=== PATIENT | female | born 1930 | race Caucasian/White ===

== ENCOUNTER 2020-09-01 14:48 | Inpatient (IN) | payer MEDICARE ==
--- NOTE | 2020-09-01 15:26 | XR ---
EXAMINATION TYPE: XR chest 2V DATE OF EXAM: 09/01/2020 COMPARISON: NONE HISTORY: Chest pain TECHNIQUE: Frontal and lateral views of the chest are obtained. FINDINGS: There is no focal air space opacity, pleural effusion, or pneumothorax seen. The cardiac silhouette size is at the upper limits of normal for size, heart size may be accentuated due to pectu s deformity. There are overlying leads. The osseous structures are intact, there is multilevel spond ylosis. IMPRESSION: No acute cardiopulmonary process.
[2020-09-01 15:27] LABS: Basophils % (A) 0 %; Eosinophils # (A) 0.1 k/uL (0-0.7); Eosinophils % (A) 2 %; HCT 37.6 % (34.0-46.0); HGB 12.6 gm/dL (11.4-16.0); Lymphocytes # (A) 1.2 k/uL (1.0-4.8); Lymphocytes % (A) 22 %; MCH 31.2 pg (25.0-35.0); MCHC 33.5 g/dL (31.0-37.0); MCV 93.3 fL (80.0-100.0); Mean Platelet Volume 8.2; Monocytes # (A) 0.4 k/uL (0-1.0); Monocytes % (A) 8 %; Neutrophils # (A) 3.5 k/uL (1.3-7.7); Neutrophils % (A) 65 %; Platelet Count 171 k/uL (150-450); RBC 4.03 m/uL (3.80-5.40); RDW 12.1 % (11.5-15.5); WBC 5.4 k/uL (3.8-10.6)
[2020-09-01 15:35] LABS: ALT 10 U/L (4-34); AST 26 U/L (14-36); African American GFR (CKD) >90 (>60 ml/min/1.73 sqM); Albumin 3.8 g/dL (3.5-5.0); Alkaline Phosphatase 86 U/L (38-126); Anion Gap 7 mmol/L; Blood Urea Nitrogen 17 mg/dL (7-17); Calcium 9.2 mg/dL (8.4-10.2); Carbon Dioxide 26 mmol/L (22-30); Chloride 105 mmol/L (98-107); Creatine Kinase 96 U/L (30-135); Glucose 89 mg/dL (74-99); Lipase 109 U/L (23-300); Magnesium 2.1 mg/dL (1.6-2.3); Non-African American GFR(CKD) 79 (>60 ml/min/1.73 sqM); Sodium 138 mmol/L (137-145); Total Bilirubin 0.3 mg/dL (0.2-1.3); Total Protein 6.3 g/dL (6.3-8.2)
[2020-09-01 15:37] LABS: Partial Thromboplastin Time 23.4 sec (22.0-30.0); Prothrombin Time 10.5 sec (9.0-12.0)
[2020-09-01 15:39] LABS: D-Dimer 0.73 mg/L FEU (<0.60)
--- NOTE | 2020-09-01 16:52 | ED ---
Chest Pain HPI - General Chief Complaint: Chest Pain Stated Complaint: Chest pain Time Seen by Provider: 09/01/20 14:48 Source: patient, EMS, RN notes reviewed Mode of arrival: EMS Limitations: no limitations - History of Present Illness Initial Comments: This is a 89-year-old female was brought in by EMS today because of retrosternal chest pain. He states was very severe. She was given aspirin one nitroglycerin the pain resolved. She is brought in by EMS EKG showed no acute changes initially. She states she's been having problems for the past week with intermittent episodes of retrosternal chest discomfort that. She states that this pain occurred about 45 minutes prior to arrival today. No cough phlegm production fevers chills nausea vomiting sweats this time. MD Complaint: chest pain - Related Data Allergies Allergy/AdvReac Type Severity Reaction Status Date / Time Sulfa (Sulfonamide Allergy Abdominal Verified 09/01/20 14:51 Antibiotics) Pain Review of Systems ROS Statement: Those systems with pertinent positive or pertinent negative responses have been documented in the HPI. ROS Other: All systems not noted in ROS Statement are negative. EKG Findings - EKG Results: EKG: interpreted by RAMIN, sinus rhythm (Sinus rhythm a 68. We'll 182 QRS duration 84 QT since QTC 434/461 minutes. Eckerman RVH evidence of old inferior changes) Past Medical History Additional Past Medical History / Comment(s): Colon CA History of Any Multi-Drug Resistant Organisms: None Reported Past Surgical History: No Surgical Hx Reported Smoking Status: Never smoker Past Alcohol Use History: None Reported Past Drug Use History: None Reported General Exam - General Exam Comments Initial Comments: This is a well-developed asthenic appearing female who is awake alert oriented 3 Limitations: no limitations Course Vital Signs 09/01/20 09/01/20 14:51 16:25 Temperature 98.2 F Pulse Rate 71 Respiratory 16 Rate Blood Pressure 124/76 107/68 O2 Sat by Pulse 100 Oximetry - Reevaluation(s) Reevaluation #1: 09/01/20 17:06 Reevaluation patient reveals no further chest pain. Chest Pain MDM - MDM Imaging reviewed no acute findings I did discuss findings with patient family regarding findings patient will be admitted with cardiology consultation did discuss case Dr. Bernard Critical Care Time Critical Care Time: Yes Total Critical Care Time: 31 Critical Care Time: Critical care time includes initial presentation with history physical labs x- rays reevaluation patient responsive therapy discuss with the patient family regarding findings discussed with the admitting physician admission orders and documentation the above Disposition Clinical Impression: Chest pain, Unstable angina pectoris Disposition: ADMITTED IP TO THIS [facility] Condition: Fair Referrals: Andrez Gibbons MD [Primary Care Provider] - 1-2 days
[2020-09-01] MEDS ORDERED: NITROGLYCERIN SL TABS 0.4 MG TAB SUBLINGUAL PRN (17:07)
[2020-09-01] MEDS ORDERED: HEPARIN SODIUM 1,000 UN/ML (10ML VL) IV ONE (17:07)
[2020-09-01] MEDS ORDERED: HEPARIN SOD,PORK IN 0.45% NACL 25,000 UNIT in 0.45% NACL 1 250ML.BAG IV SCH (17:15)
[2020-09-01] MEDS: SODIUM CHLORIDE 0.9% 1,000 ML IV SCH (17:39)
[2020-09-01] MEDS ORDERED: NALOXONE 0.4 MG/ML 1 ML VIAL IV PRN (18:01)
[2020-09-01] MEDS ORDERED: bisacodyL 5 MG TABLET.DR PO PRN (18:01)
[2020-09-01] MEDS ORDERED: PANTOPRAZOLE 40 MG/10 ML VIAL IVP STA (18:02)
--- NOTE | 2020-09-01 18:07 | P.HPIM ---
History of Present Illness H&P Date: 09/01/20 Chief Complaint: chest pain Patient is a 89-year-old female with a history of prior colon cancer who presented to the ER with complaint of chest pain. She received aspirin and nitro prior to arrival in the ED with adequate pain relief. Inital EKG demonstarted NSR with PAC, SUper axis deviation, and no st-t wave changes. CXR showed no acute process. Initial troponin was negative. D_dimer when adjusted for age was normal. Patient seen and examined at bedside. She reports that last week she has been having some pretty significant heartburn, nausea, and constipation for the last 3 days after taking Pepto-Bismol. Today [place] she started experiencing retrosternal chest pain without radiation that was severe in nature. It was associated with difficulty in breathing, feeling just off and nauseated. No unusual numbness or tingling down into her arms or up into her jaw. No presyncope. She has not been sick or ill otherwise recently. She denies any changes in medications. She states she recently had an EKG done at Dr. Gibbons's office which was normal. She has no history of heart disease. No recent changes in medication. Has been taking peptobismol for he last week fro heart burn. Pertinent positives and negatives as discussed in HPI, a complete review of systems was performed and all other systems are negative. General: non toxic, no distress, appears at stated age Derm: warm, dry Head: atraumatic, normocephalic, symmetric Eyes: EOMI, no lid lag, anicteric sclera, pupils equal round reactive to light ENT: Nose and ears atraumatic, no thrush, + pharyngeal erythema, no thrush Neck: No thyromegaly, no cervical lymphadenopathy, trachea midline, supple Mouth: no lip lesion, mucus membranes moist Cardiovascular: S1S2 reg, no murmur, positive posterior tibial pulse bilateral, no edema, capillary refill less than 2 seconds Lungs: clear to ascultation bilateral, no ronchi, no rales, no wheeze, no accessory muscle use Abdominal: soft, nontender to palpation, no guarding, no appreciable organomegaly, normal bowel sounds Ext: no gross muscle atrophy, muscle strength muscle strength 5 out of 5 in all 4 extremities, no contractures Neuro: CN II-XI grossly intact, light touch intact all 4 extremities, finger to nose within normal limits, Psych: Alert, oriented, appropriate affect Chest pain, relieved by nitroglycerin -Concerns for cardiac versus esophageal etiology. -Follow troponins -Aspirin -Statin -Placed on heparin drip -Cardiology consultation -Telemetry -D-dimer is normal for age as she could have peptic 0.9 and it would be considered normal Bradycardia with PAC noted on monitor -Continue with telemetry -We will need walk test for: Atrophic competency prior to discharge GERD with known hiatal hernia -Start PPI Glaucoma -Resume eyedrops went home The patient is placed in observation with an anticipated less than 2 midnight stay for evaluation of chest pain. Surrogate decision-maker: son CODE STATUS:full, no prolonged mechanical ventilation DVT prophylaxis: SCDs Discussed with: patient, son, nursing, ed physician Anticipated discharge date: in AM Anticipated discharge place[facility] A total of 65 minutes was spent on the care of this complex patient more than 50% of the time was spent in counseling and care coordination. Past Medical History Additional Past Medical History / Comment(s): Colon CA, hiatal hernia, glaucoma History of Any Multi-Drug Resistant Organisms: None Reported Past Surgical History: Hysterectomy Additional Past Surgical History / Comment(s): partial coloctomy due to colon ca, parathyroidectomy Smoking Status: Never smoker Past Alcohol Use History: None Reported Past Drug Use History: None Reported Additional History: no assistive devices - Past Family History Mother Additional Family Medical History / Comment(s): heart disease, [place] at age 75 Medications and Allergies Allergies Allergy/AdvReac Type Severity Reaction Status Date / Time Sulfa (Sulfonamide Allergy Abdominal Verified 09/01/20 14:51 Antibiotics) Pain Physical Exam Osteopathic Statement: *. No significant issues noted on an osteopathic structural exam other than those noted in the History and Physical/Consult. Vitals: Vital Signs Temp Pulse Resp BP Pulse Ox 09/01/20 16:25 71 16 107/68 100 09/01/20 14:51 98.2 F 124/76 Intake and Output 09/01/20 09/01/20 09/01/20 06:59 14:59 22:59 Other: Weight 49.895 kg Results CBC & Chem 7: 09/01/20 14:58 09/01/20 14:58 Labs: Abnormal Lab Results - Last 24 Hours (Table) 09/01/20 Range/Units 14:58 D-Dimer 0.73 H (<0.60) mg/L FEU
[2020-09-01] MEDS: ATORVASTATIN 80 MG TAB PO SCH (23:05)
[2020-09-01] MEDS: ONDANSETRON 4 MG/2 ML VIAL IVP PRN (23:06)
[2020-09-02] MEDS: PANTOPRAZOLE 40 MG TABLET PO SCH ×2 (07:49→17:57)
[2020-09-02] MEDS: ONDANSETRON 4 MG/2 ML VIAL IVP PRN (07:49)
[2020-09-02] MEDS ORDERED: ASPIRIN 325 MG TAB PO SCH (09:00)
[2020-09-02 09:31] LABS: Chol/HDL Ratio 3.06; Cholesterol 193 mg/dL (0-200); Triglycerides <50.0 mg/dL (0.0-149.0)
--- NOTE | 2020-09-02 10:07 | P.CRDCN ---
History of Present Illness History of present illness: HISTORY OF PRESENTING ILLNESS This is a pleasant 89-year-old female past medical history significant for GERD and known hiatal hernia. 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 We venus peres been asked to see in consultation for chest pain and elevated troponin. Patient states that yesterday, she was walking into her house, she checked the mail. Started having midsternal chest pain. It increased with activity. Describes it as 8/10, aching and tight. She states this was different then the burning acid refluex chest pain she usually has. Her chest pain did not subside. Pain is non-radiating. She states she went inside, her daugther called EMS. Patient received aspirin and nitro in the ambulance and her chest pain was relieved. She did have associated nausea, mild diaphoresis and dyspnea. She denies palpitations. She is a non-smoker, never smoked. Non-diabetic. Denies history of coronary artery disease, [place], stroke, HTN, HLD. She does not take any medications. Patient is seen and examined and examined at bedside, no acute distress, chest pain has resolved. She does endorse conspitation, not having a bowel movement for 3 days. She does live alone, able to care for herself and do ADLs with no assistance. EKG revealed sinus rhythm, heart rate 60, right axis deviation, right bundle branch block, slow R wave progression. No prior EKG. Repeat EKG this morning reveals sinus bradycardia, heart rate 52, right axis deviation, right bundle branch block, slow R wave progression. Laboratory reviewed, CBC unremarkable, d-dimer 0.73, troponin trend 0.012-->0.24-->.059. Sodium 138, potassium 4.0, serum creatinine 0.65, magnesium 2.1, proBNP 372, COVID-19 negative. Telemetry reviewed patient in sinus bradycardia HR 40s. REVIEW OF SYSTEMS At the time of my exam: CONSTITUTIONAL: Denies fever or chills. CARDIOVASCULAR: +Chest pain +shortness of breath. Denies orthopnea, PND or palpitations. RESPIRATORY: Denies cough. GASTROINTESTINAL: +nausea, +constipation. Denies abdominal pain, diarrhea, vomiting. MUSCULOSKELETAL: Denies myalgias. NEUROLOGIC: Denies numbness, tingling, headacbe or weakness. ENDOCRINE: Denies fatigue, weight change, polydipsia or polyurina. GENITOURINARY: Denies burning, hematuria or urgency with micturation. HEMATOLOGIC: Denies history of anemia or bleeding. PHYSICAL EXAMINATION Blood pressure 138/65 heart rate 4050s afebrile and maintaining oxygen saturation 96% on room air CONSTITUTIONAL: No apparent distress. HEENT: Head is normocephalic. Pupils are equal, round. Sclerae anicteric. Mucous membranes of the mouth are moist. No JVD. No carotid bruit. CHEST EXAMINATION: Lungs are clear to auscultation. No chest wall tenderness is noted on palpation or with deep breathing. HEART EXAMINATION: Slow regular rate and rhythm. S1, S2 heard. Systolic ejection murmur heard. No gallops or rub. ABDOMEN: Soft, nontender. Positive bowel sounds. EXTREMITIES: 2+ peripheral pulses, no lower extremity edema and no calf tenderness. SKIN: intact NEUROLOGIC EXAMINATION: Patient is awake, alert and oriented x3. ASSESSMENT NSTEMI GERD Known Hiatal hernia PLAN Risks, Benefits of cardiac catheterization and alternative therapies were disc ussed with the patient. Patient has indicated understanding and would like to continue with medical management at this time. Obtain 2D echocardiogram and doppler study to assess cardiac structure and function. Continue Heparin drip for 24 hours Aspirin, Plavix, statin, Imdur started Cardiac telemetry Patient has been bradycardic, no beta juan alberto started. Further recommendations based on clinical course. Thank you kindly for this consultation. Nurse Practitioner note has been reviewed, I agree with a documented findings and plan of care. Patient was seen and examined. Past Medical History Additional Past Medical History / Comment(s): Colon CA, hiatal hernia, glaucoma History of Any Multi-Drug Resistant Organisms: None Reported Past Surgical History: Hysterectomy Additional Past Surgical History / Comment(s): partial coloctomy due to colon ca, parathyroidectomy Smoking Status: Never smoker Past Alcohol Use History: None Reported Past Drug Use History: None Reported - Past Family History Mother Additional Family Medical History / Comment(s): heart disease, [place] at age 75 Medications and Allergies Home Medications Medication Instructions Recorded Confirmed Type Cholecalciferol [Vitamin D3 (25 50 mcg PO DAILY 09/01/20 09/01/20 History Mcg = 1000 Iu)] Cranberry Fruit Extract [Cranberry] 500 mg PO DAILY 09/01/20 09/01/20 History Latanoprost/Pf [Latanoprost 0.005% 1 drop BOTH EYES HS 09/01/20 09/01/20 History Eye Drop] Vitamin E 400 unit PO DAILY 09/01/20 09/01/20 History Allergies Allergy/AdvReac Type Severity Reaction Status Date / Time Sulfa (Sulfonamide Allergy Abdominal Verified 09/01/20 18:17 Antibiotics) Pain Physical Exam Vitals: Vital Signs Temp Pulse Pulse Resp BP BP Pulse Ox 09/02/20 07:00 98.3 F 51 L 16 138/65 96 09/02/20 02:00 98.1 F 49 L 16 108/62 94 L 09/01/20 18:15 57 L 16 103/77 98 09/01/20 16:25 71 16 107/68 100 09/01/20 14:51 98.2 F 124/76 Intake and Output 09/01/20 09/02/20 09/02/20 22:59 06:59 14:59 Other: # Voids 1 1 Weight 49.895 kg Results 09/01/20 14:58 09/01/20 14:58 Cardiac Enzymes 09/01/20 09/01/20 09/01/20 Range/Units 14:58 14:58 19:35 AST 26 (14-36) U/L Troponin I 0.012 0.245 H* (0.000-0.034) ng/mL 09/01/20 Range/Units 22:11 AST (14-36) U/L Troponin I 0.591 H* (0.000-0.034) ng/mL Coagulation 09/01/20 Range/Units 14:58 PT 10.5 (9.0-12.0) sec APTT 23.4 (22.0-30.0) sec CBC 09/01/20 Range/Units 14:58 WBC 5.4 (3.8-10.6) k/uL RBC 4.03 (3.80-5.40) m/uL Hgb 12.6 (11.4-16.0) gm/dL Hct 37.6 (34.0-46.0) % Plt Count 171 (150-450) k/uL Comprehensive Metabolic Panel 09/01/20 Range/Units 14:58 Sodium 138 (137-145) mmol/L Potassium 4.0 (3.5-5.1) mmol/L Chloride 105 (98-107) mmol/L Carbon Dioxide 26 (22-30) mmol/L BUN 17 (7-17) mg/dL Creatinine 0.65 (0.52-1.04) mg/dL Glucose 89 (74-99) mg/dL Calcium 9.2 (8.4-10.2) mg/dL AST 26 (14-36) U/L ALT 10 (4-34) U/L Alkaline Phosphatase 86 (38-126) U/L Total Protein 6.3 (6.3-8.2) g/dL Albumin 3.8 (3.5-5.0) g/dL Current Medications Generic Name Dose Route Start Last Admin Trade Name Freq PRN Reason Stop Dose Admin Acetaminophen 650 mg 09/01/20 18:01 Acetaminophen Tab 325 Mg Tab PO Q6HR PRN Mild Pain or Fever > 100.5 Aspirin 325 mg 09/02/20 09:00 09/02/20 07:49 Aspirin 325 Mg Tab PO 325 mg DAILY RITCHIE Administration Atorvastatin Calcium 80 mg 09/01/20 21:00 09/01/20 23:05 Atorvastatin 80 Mg Tab PO 80 mg HS RITCHIE Administration Bisacodyl 5 mg 09/01/20 18:01 Bisacodyl 5 Mg Tablet.Dr PO DAILY PRN Constipation Sodium Chloride 1,000 mls @ 20 mls/hr 09/01/20 17:15 09/01/20 17:39 Saline 0.9% IV 20 mls/hr .Q24H RITCHIE Administration Heparin Sodium/Sodium Chloride 250 mls @ 5.987 mls/hr 09/01/20 17:15 09/01/20 17:36 25,000 unit/ Sodium Chloride IV 12 units/kg/hr .Q24H RITCHIE 5.987 mls/hr Administration Protocol 12 UNITS/KG/HR Naloxone HCl 0.2 mg 09/01/20 18:01 Naloxone 0.4 Mg/Ml 1 Ml Vial IV Q2M PRN Opioid Reversal Nitroglycerin 0.4 mg 09/01/20 17:07 Nitroglycerin Sl Tabs 0.4 Mg Tab SUBLINGUAL Q5M PRN Chest Pain Ondansetron HCl 4 mg 09/01/20 18:01 09/02/20 07:49 Ondansetron 4 Mg/2 Ml Vial IVP 4 mg Q8HR PRN Administration Nausea And Vomiting Pantoprazole Sodium 40 mg 09/02/20 07:30 09/02/20 07:49 Pantoprazole 40 Mg Tablet PO 40 mg AC-BID RITCHIE Administration Intake and Output 09/01/20 09/02/20 09/02/20 22:59 06:59 14:59 Other: # Voids 1 1 Weight 49.895 kg 09/01/20 14:58 09/01/20 14:58
[2020-09-02] MEDS: CLOPIDOGREL 75 MG TAB PO SCH (11:13)
[2020-09-02] MEDS: ISOSORBIDE MONONITRATE ER 30 MG TAB.ER.24H PO SCH (11:13)
--- NOTE | 2020-09-02 11:29 | P.PN ---
Subjective Progress Note Date: 09/02/20 Patient's chest pain has resolved. Troponins have been increasing. Patient has been borderline bradycardic. Objective - Vital Signs Vital signs: Vital Signs Temp 98.3 F 09/02/20 07:00 Pulse 51 L 09/02/20 07:00 Resp 16 09/02/20 07:00 BP 138/65 09/02/20 07:00 Pulse Ox 96 09/02/20 07:00 Intake & Output 09/01/20 09/02/20 09/02/20 18:59 06:59 18:59 Intake Total 118 Balance 118 Weight 49.895 kg 49.895 kg Intake: Oral 118 Other: # Voids 1 - Exam Gen: awake, alert HEENT: normocephalic, atraumatic, good hearing acuity, moist mucous membranes Resp: good air exchange, breathing comfortably with no accessory muscle use, clear to auscultation bilaterally without wheezes or crackles CVS: good distal perfusion x 4, bradycardic, regular rate, systolic ejection murmur GI: soft, NTTP, ND, appropriate bowel sounds : no SPT, no CVAT, mello catheter not present MSK: no pitting edema, no clubbing Neuro: non-focal, moving all extremities Psych: cooperative, euthymic mood - Labs CBC & Chem 7: 09/01/20 14:58 09/01/20 14:58 Labs: Abnormal Lab Results - Last 24 Hours (Table) 09/01/20 09/01/20 09/01/20 Range/Units 14:58 19:35 22:11 D-Dimer 0.73 H (<0.60) mg/L FEU Troponin I 0.245 H* 0.591 H* (0.000-0.034) ng/mL HDL Cholesterol (40.0-60.0) mg/dL 09/02/20 Range/Units 05:33 D-Dimer (<0.60) mg/L FEU Troponin I (0.000-0.034) ng/mL HDL Cholesterol 63.0 H (40.0-60.0) mg/dL Assessment and Plan Assessment: NSTEMI -Follow troponins to peak -Aspirin -Statin -Beta juan alberto not started due to bradycardia -Cardiology started Imdur -Placed on heparin drip -Cardiology consultation -Telemetry -D-dimer is normal for age as she could have peptic 0.9 and it would be considered normal Bradycardia with PAC noted on monitor -Continue with telemetry -We will need walk test for: Chronotropic competence prior to discharge GERD with known hiatal hernia -Start PPI Glaucoma -Resume eyedrops went home The patient may change to inpatient status today CODE STATUS:full, no prolonged mechanical ventilation DVT prophylaxis: SCDs Anticipated discharge date: Tomorrow a.m. Anticipated discharge place: [facility]
--- NOTE | 2020-09-02 11:31 | ECHOF ---
Referral Reason:elevated troponin, chest pain MEASUREMENTS -------- HEIGHT: 162.6 cm WEIGHT: 49.9 kg BP: 138/65 RVIDd: 2.3 cm (< 3.3) IVSd: 1.0 cm (0.6 - 1.1) LVIDd: 3.4 cm (3.9 - 5.3) LVPWd: 1.3 cm (0.6 - 1.1) IVSs: 1.4 cm LVIDs: 1.9 cm LVPWs: 1.4 cm LAESV Index (A-L): 44.16 ml/m Ao Diam: 2.4 cm (2.0 - 3.7) AV Cusp: 1.6 cm (1.5 - 2.6) MV EXCURSION: 15.351 mm (> 18.000) MV EF SLOPE: 52 mm/s (70 - 150) EPSS: 0.6 cm MV E Akin: 0.74 m/s MV DecT: 330 ms MV A Akin: 1.05 m/s MV E/A Ratio: 0.71 AR PHT: 371 ms RAP: 20.00 mmHg RVSP: 46.87 mmHg FINDINGS -------- Sinus rhythm. This was a technically adequate study. The left ventricular size is normal. There is mild concentric left ventricular hypertrophy. Overa ll left ventricular systolic function is normal with, an EF between 55 - 60 %. The diastolic fillin g pattern is normal for the age of the patient 12.73. The right ventricle is normal in size. LA is severely dilated >40 ml/m2 The right atrial size is normal. Interatrial and interventricular septum intact. The aortic valve is trileaflet and appears structurally normal. Trace amount of aortic regurgitatio n. There is no evidence of aortic stenosis. Mild mitral annular calcification present. Moderate mitral regurgitation is present. Ckfu-ua-pwcawbik tricuspid regurgitation present. There is mild to moderate pulmonary hypertension. The right ventricular systolic pressure, as measured by Doppler, is 46.87mmHg. Trace/mild (physiologic) pulmonic regurgitation. The aortic root size is normal. The inferior vena cava is dilated with poor inspiratory collapse which is consistent with estimated r ight atrial pressure of 20 mmHg. CONCLUSIONS -------- 1. The left ventricular size is normal. 2. There is mild concentric left ventricular hypertrophy. 3. Overall left ventricular systolic function is normal with, an EF between 55 - 60 %. 4. LA is severely dilated >40 ml/m2 5. Trace amount of aortic regurgitation. 6. Mild mitral annular calcification present. 7. Moderate mitral regurgitation is present. 8. Pcoj-th-hejlboeo tricuspid regurgitation present. 9. There is mild to moderate pulmonary hypertension. 10. The right ventricular systolic pressure, as measured by Doppler, is 46.87mmHg. 11. Trace/mild (physiologic) pulmonic regurgitation. 12. The inferior vena cava is dilated with poor inspiratory collapse which is consistent with estimat ed right atrial pressure of 20 mmHg. OIM ARCHITECT: Taylor Randall RDCS
[2020-09-02 12:59] VITALS: BMI 18.8
[2020-09-02] MEDS: HEPARIN SOD,PORK IN 0.45% NACL 25,000 UNIT in 0.45% NACL 1 250ML.BAG IV SCH (17:26)
[2020-09-02] MEDS: SODIUM CHLORIDE 0.9% 1,000 ML IV SCH (17:27)
[2020-09-02] MEDS: ATORVASTATIN 80 MG TAB PO SCH (21:32)
[2020-09-03] MEDS ORDERED: HEPARIN SODIUM 1,000 UN/ML (10ML VL) IV PRN (01:50)
[2020-09-03 07:06] LABS: African American GFR (CKD) 82 (>60 ml/min/1.73 sqM); Anion Gap 3 mmol/L; Blood Urea Nitrogen 17 mg/dL (7-17); Calcium 8.8 mg/dL (8.4-10.2); Carbon Dioxide 29 mmol/L (22-30); Chloride 107 mmol/L (98-107); Glucose 91 mg/dL (74-99); Non-African American GFR(CKD) 71 (>60 ml/min/1.73 sqM); Potassium 4.2 mmol/L (3.5-5.1); Sodium 139 mmol/L (137-145)
[2020-09-03] MEDS: HEPARIN SOD,PORK IN 0.45% NACL 25,000 UNIT in 0.45% NACL 1 250ML.BAG IV SCH (09:04)
[2020-09-03] MEDS: PANTOPRAZOLE 40 MG TABLET PO SCH ×2 (09:22→17:31)
[2020-09-03] MEDS: ISOSORBIDE MONONITRATE ER 30 MG TAB.ER.24H PO SCH (09:22)
[2020-09-03] MEDS: ASPIRIN 81 MG PO SCH (09:22)
[2020-09-03] MEDS: CLOPIDOGREL 75 MG TAB PO SCH (09:22)
--- NOTE | 2020-09-03 10:59 | P.PN ---
Subjective Progress Note Date: 09/03/20 After speaking with the patient and the daughter today, patient is amenable to having a left heart cath done and if needed an intervention with the PCI. Patient no longer complaining of chest pain. Troponins were increasing as of this morning. Patient continues underwent a platelet therapy as well as heparin drip and statin therapy. Objective - Vital Signs Vital signs: Vital Signs Temp 98.2 F 09/03/20 07:00 Pulse 75 09/03/20 09:13 Resp 16 09/03/20 07:00 BP 102/43 09/03/20 09:13 Pulse Ox 98 09/03/20 07:00 Intake & Output 09/02/20 09/03/20 09/03/20 18:59 06:59 18:59 Intake Total 118 195.076 150 Output Total 3 Balance 115 195.076 150 Weight 49.895 kg Intake: Intake, IV Titration 195.076 Amount Heparin Sod,Pork in 0.45% 195.076 NaCl 25,000 unit In 0.45 % NaCl 1 250ml.bag @ 12 UNITS/KG/HR 5.987 mls/hr IV .Q24H [facility] Rx#: [id number] Oral 118 150 Output: Stool 3 Other: Voiding Method Toilet # Voids 2 - Exam Gen: awake, alert HEENT: normocephalic, atraumatic, good hearing acuity, moist mucous membranes Resp: good air exchange, breathing comfortably with no accessory muscle use, clear to auscultation bilaterally without wheezes or crackles CVS: good distal perfusion x 4, bradycardic, regular rate, systolic ejection murmur GI: soft, NTTP, ND, appropriate bowel sounds : no SPT, no CVAT, mello catheter not present MSK: no pitting edema, no clubbing Neuro: non-focal, moving all extremities Psych: cooperative, euthymic mood - Labs CBC & Chem 7: 09/01/20 14:58 09/03/20 06:00 Labs: Abnormal Lab Results - Last 24 Hours (Table) 09/02/20 09/03/20 09/03/20 Range/Units 21:53 06:00 07:53 APTT 39.7 H 70.2 H (22.0-30.0) sec Troponin I 0.841 H* (0.000-0.034) ng/mL Assessment and Plan Assessment: NSTEMI -Follow troponins to peak -Aspirin -Statin -Beta juan alberto not started due to bradycardia -Cardiology started Imdur -Placed on heparin drip -Cardiology consultation -Telemetry -D-dimer is normal for age as she could have peptic 0.9 and it would be considered normal Bradycardia with PAC noted on monitor -Continue with telemetry -We will need walk test for: Chronotropic competence prior to discharge GERD with known hiatal hernia -Start PPI Glaucoma -Resume eyedrops went home The patient may change to inpatient status today CODE STATUS:full, no prolonged mechanical ventilation DVT prophylaxis: SCDs Anticipated discharge date: Tomorrow a.m. Anticipated discharge place: [facility]
--- NOTE | 2020-09-03 13:59 | P.PN ---
Subjective Progress Note Date: 09/03/20 This is a pleasant 89-year-old female patient with a past medical history of GERD and hiatal hernia. She presented with complaints of chest discomfort. EKG on admission showed sinus mechanism with nonspecific ST-T wave abnormalities and evidence of prior inferior infarct. Troponins came back to be elevated at 0.012, 0.245, 0.591 and 0.841. Initially following discussion with the patient it was decided on medical management. She's been initiated on aspirin 81 mg daily, atorvastatin 80 mg by mouth daily at bedtime, Plavix 75 mg by mouth daily, isosorbide 30 mg daily and heparin drip. Upon examination this morning family is at bedside. And after further discussion with the family the patient would like to pursue cardiac catheterization. She has been chest pain free. Objective - Vital Signs Vital signs: Vital Signs Temp 98.2 F 09/03/20 07:00 Pulse 75 09/03/20 09:13 Resp 16 09/03/20 08:00 BP 102/43 09/03/20 09:13 Pulse Ox 98 09/03/20 07:00 Intake & Output 09/02/20 09/03/20 09/03/20 18:59 06:59 18:59 Intake Total 118 195.076 150 Output Total 3 Balance 115 195.076 150 Weight 49.895 kg Intake: Intake, IV Titration 195.076 Amount Heparin Sod,Pork in 0.45% 195.076 NaCl 25,000 unit In 0.45 % NaCl 1 250ml.bag @ 12 UNITS/KG/HR 5.987 mls/hr IV .Q24H [facility] Rx#: [id number] Oral 118 150 Output: Stool 3 Other: Voiding Method Toilet Toilet # Voids 2 - Exam PHYSICAL EXAMINATION: HEENT: Head is atraumatic, normocephalic. Pupils equal, round. Neck is supple. There is no elevated jugular venous pressure. HEART EXAMINATION: Heart sounds regular, S1 and S2 normal with a soft systolic murmur. CHEST EXAMINATION: Lungs are clear to auscultation. No chest wall tenderness is noted on palpation or with deep breathing. ABDOMEN: Soft, nontender. Bowel sounds are heard. No organomegaly noted. EXTREMITIES: 2+ peripheral pulses with no evidence of peripheral edema and no calf tenderness noted. NEUROLOGIC patient is awake, alert and oriented x3. . - Labs CBC & Chem 7: 09/01/20 14:58 09/03/20 06:00 Labs: Abnormal Lab Results - Last 24 Hours (Table) 09/02/20 09/03/20 09/03/20 Range/Units 21:53 06:00 07:53 APTT 39.7 H 70.2 H (22.0-30.0) sec Troponin I 0.841 H* (0.000-0.034) ng/mL 09/03/20 Range/Units 11:03 APTT (22.0-30.0) sec Troponin I 0.666 H* (0.000-0.034) ng/mL Assessment and Plan Assessment: #1 non-ST elevation WA #2 GERD #3 hiatal hernia Plan: From cardiology's perspective, again risk and benefits of cardiac catheterization and alternative therapies were discussed with the patient and the family. Both the patient and family aren't completely understanding and would like to proceed with cardiac catheterization at some point. Patient did eat breakfast this morning and is chest pain-free. She is currently on appropriate medical therapy. We will continue to monitor the patient and provide further recommendations accordingly. The above dictated assessment and findings were discussed with signing physician. The impression and plan of care have been directed as dictated. Kimberly Solano, Nurse Practitioner, acting as scribe for signing physician.
[2020-09-03] MEDS: SODIUM CHLORIDE 0.9% 1,000 ML IV SCH (14:25)
[2020-09-03] MEDS: ACETAMINOPHEN TAB 325 MG TAB PO PRN (20:47)
[2020-09-03] MEDS: ATORVASTATIN 80 MG TAB PO SCH (20:49)
[2020-09-04] MEDS ORDERED: NITROGLYCERIN SL TABS 0.4 MG TAB SUBLINGUAL PRN (07:53)
[2020-09-04] MEDS ORDERED: ALPRAZolam 0.25 MG TAB PO PRN (07:53)
[2020-09-04] MEDS ORDERED: ALPRAZolam 0.5 MG TAB PO PRN (07:53)
[2020-09-04] MEDS ORDERED: SODIUM CHLORIDE 0.9% 1,000 ML in EMPTY BAG 1 BAG IV ONE (07:53)
[2020-09-04 08:54] LABS: Basophils % (A) 1 %; Eosinophils # (A) 0.1 k/uL (0-0.7); Eosinophils % (A) 3 %; HCT 40.1 % (34.0-46.0); HGB 13.3 gm/dL (11.4-16.0); Lymphocytes % (A) 21 %; MCH 31.4 pg (25.0-35.0); MCHC 33.2 g/dL (31.0-37.0); MCV 94.5 fL (80.0-100.0); Mean Platelet Volume 8.5; Monocytes # (A) 0.3 k/uL (0-1.0); Monocytes % (A) 7 %; Neutrophils # (A) 3.2 k/uL (1.3-7.7); Neutrophils % (A) 67 %; Platelet Count 171 k/uL (150-450); RBC 4.25 m/uL (3.80-5.40); RDW 12.3 % (11.5-15.5); WBC 4.8 k/uL (3.8-10.6)
[2020-09-04] MEDS: ASPIRIN 81 MG PO SCH (09:03)
[2020-09-04] MEDS: CLOPIDOGREL 75 MG TAB PO SCH (09:03)
[2020-09-04] MEDS: PANTOPRAZOLE 40 MG TABLET PO SCH ×2 (09:03→17:27)
[2020-09-04] MEDS: ISOSORBIDE MONONITRATE ER 30 MG TAB.ER.24H PO SCH (09:03)
[2020-09-04 09:15] LABS: African American GFR (CKD) 89 (>60 ml/min/1.73 sqM); Anion Gap 4 mmol/L; Blood Urea Nitrogen 14 mg/dL (7-17); Calcium 8.9 mg/dL (8.4-10.2); Carbon Dioxide 30 mmol/L (22-30); Chloride 107 mmol/L (98-107); Glucose 89 mg/dL (74-99); Non-African American GFR(CKD) 78 (>60 ml/min/1.73 sqM); Sodium 141 mmol/L (137-145)
--- NOTE | 2020-09-04 09:26 | P.PN ---
Subjective Progress Note Date: 09/04/20 Noted complex at this time. No further chest pain. Plan for left heart cath tomorrow. Troponins have peaked at 0.86. Objective - Vital Signs Vital signs: Vital Signs Temp 97.6 F 09/04/20 07:00 Pulse 69 09/04/20 07:00 Resp 18 09/04/20 07:00 BP 132/64 09/04/20 07:00 Pulse Ox 96 09/04/20 07:00 Intake & Output 09/03/20 09/04/20 09/04/20 18:59 06:59 18:59 Intake Total 466 150 Output Total 2 Balance 466 -2 150 Intake: IV 216 Heparin Sod,Pork in 0.45% 56 NaCl 25,000 unit In 0.45 % NaCl 1 250ml.bag @ 12 UNITS/KG/HR 5.987 mls/hr IV .Q24H [facility] Rx#: [id number] Sodium Chloride 0.9% 1, 160 000 ml @ 20 mls/hr IV . Q24H [facility] Rx#:[id number] Oral 250 150 Output: Stool 2 Other: Voiding Method Toilet Toilet # Voids 2 1 - Exam Gen: awake, alert HEENT: normocephalic, atraumatic, good hearing acuity, moist mucous membranes Resp: good air exchange, breathing comfortably with no accessory muscle use, clear to auscultation bilaterally without wheezes or crackles CVS: good distal perfusion x 4, bradycardic, regular rate, systolic ejection murmur GI: soft, NTTP, ND, appropriate bowel sounds : no SPT, no CVAT, mello catheter not present MSK: no pitting edema, no clubbing Neuro: non-focal, moving all extremities Psych: cooperative, euthymic mood - Labs CBC & Chem 7: 09/04/20 08:20 09/04/20 08:20 Labs: Abnormal Lab Results - Last 24 Hours (Table) 09/03/20 09/03/20 Range/Units 11:03 14:49 APTT 54.3 H (22.0-30.0) sec Troponin I 0.666 H* (0.000-0.034) ng/mL Assessment and Plan Assessment: NSTEMI -Follow troponins to peak -Aspirin -Statin -Beta juan alberto not started due to bradycardia -Cardiology started Imdur -Placed on heparin drip -Cardiology consultation -Telemetry -D-dimer is normal for age as she could have peptic 0.9 and it would be considered normal -Left heart cath 09/04, pending Bradycardia with PAC noted on monitor -Continue with telemetry -We will need walk test for: Chronotropic competence prior to discharge GERD with known hiatal hernia -Start PPI Glaucoma -Resume eyedrops went home The patient may change to inpatient status today CODE STATUS:full, no prolonged mechanical ventilation DVT prophylaxis: SCDs Anticipated discharge date: Tomorrow a.m. Anticipated discharge place: [facility]
--- NOTE | 2020-09-04 12:35 | PN ---
PROGRESS NOTE Radha is an 89-year-old lady who was admitted to hospital with acute non ST-segment elevation myocardial infarction and was advised to undergo cardiac catheterization. This morning she is doing well and is free of symptoms. On exam, comfortable at rest. Vital signs are stable. Chest exam reveals good air entry bilaterally. Heart exam reveals first and second heart sounds. No gallop. Examination of extremities did not reveal any edema. Peripheral pulses are felt. ASSESSMENT: Acute non ST-segment elevation myocardial infarction. PLAN: Patient will undergo cardiac catheterization by Dr. Morales tomorrow. MMODL / IJN: [id number] /
[2020-09-04] MEDS: SODIUM CHLORIDE 0.9% 1,000 ML IV SCH (13:26)
[2020-09-04] MEDS: HEPARIN SOD,PORK IN 0.45% NACL 25,000 UNIT in 0.45% NACL 1 250ML.BAG IV SCH (13:27)
[2020-09-04] MEDS: ATORVASTATIN 80 MG TAB PO SCH (21:07)
[2020-09-05] MEDS ORDERED: ATORVASTATIN 80 MG TAB PO ONE (06:00)
[2020-09-05] MEDS ORDERED: ASPIRIN 325 MG TAB PO ONE (06:00)
[2020-09-05 06:59] LABS: Basophils % (A) 0 %; Eosinophils # (A) 0.1 k/uL (0-0.7); Eosinophils % (A) 2 %; HCT 42.7 % (34.0-46.0); HGB 13.6 gm/dL (11.4-16.0); Lymphocytes # (A) 0.9 k/uL (1.0-4.8); Lymphocytes % (A) 20 %; MCH 30.2 pg (25.0-35.0); MCHC 31.8 g/dL (31.0-37.0); MCV 94.9 fL (80.0-100.0); Mean Platelet Volume 8.5; Monocytes # (A) 0.3 k/uL (0-1.0); Monocytes % (A) 7 %; Neutrophils # (A) 3.3 k/uL (1.3-7.7); Neutrophils % (A) 67 %; Platelet Count 155 k/uL (150-450); RDW 12.8 % (11.5-15.5); WBC 4.8 k/uL (3.8-10.6)
[2020-09-05] MEDS ORDERED: HEPARIN SODIUM,PORCINE 2,500 UNIT in SODIUM CHLORIDE 0.9% 250 ML IRRIGATION PRN (07:00)
[2020-09-05] MEDS ORDERED: HEPARIN SODIUM,PORCINE 10,000 UNIT in SODIUM CHLORIDE 0.9% 1,000 ML IRRIGATION PRN (07:00)
[2020-09-05 07:16] VITALS: RESP 16
[2020-09-05 07:48] LABS: African American GFR (CKD) 88 (>60 ml/min/1.73 sqM); Anion Gap 7 mmol/L; Blood Urea Nitrogen 11 mg/dL (7-17); Calcium 9.2 mg/dL (8.4-10.2); Carbon Dioxide 30 mmol/L (22-30); Chloride 105 mmol/L (98-107); Glucose 92 mg/dL (74-99); Non-African American GFR(CKD) 76 (>60 ml/min/1.73 sqM); Potassium 4.1 mmol/L (3.5-5.1); Sodium 142 mmol/L (137-145)
[2020-09-05] MEDS ORDERED: VERAPAMIL 2.5 MG/ML 2 ML AMP ONE ×2 (08:02→10:53)
[2020-09-05] MEDS ORDERED: LIDOCAINE 1% INJ 10MG/ML (20 ML MDV) ONE (08:02)
[2020-09-05] MEDS ORDERED: HEPARIN SODIUM 1,000 UN/ML (10ML VL) ONE (08:06)
[2020-09-05] MEDS ORDERED: fentaNYL (PF) 50 MCG/ML 2 ML AMP ONE (08:07)
[2020-09-05] MEDS ORDERED: IV FLUID CONTINUATION 1,000 ML IV ONE (08:21)
[2020-09-05] MEDS ORDERED: MIDAZOLAM 2 MG/2 ML VIAL IVP ONE (08:24)
[2020-09-05] MEDS ORDERED: fentaNYL (PF) 50 MCG/ML 2 ML AMP IVP ONE ×2 (08:24)
[2020-09-05] MEDS ORDERED: LIDOCAINE 1% INJ 10MG/ML (20 ML MDV) SQ ONE (08:24)
[2020-09-05] MEDS ORDERED: VERAPAMIL SYRINGE (5 MG/10 ML) INTRAARTER ONE ×2 (08:28→10:55)
[2020-09-05] MEDS ORDERED: HEPARIN SODIUM 1,000 UN/ML (10ML VL) IV ONE (08:32)
[2020-09-05] MEDS ORDERED: IOPAMIDOL-370 125ML BTL INJ ONE ×2 (08:54→11:28)
[2020-09-05] MEDS ORDERED: RX INFO: IV CONTRAST WAS GIVEN 1 EACH MISC MISCELLANE PRN ×2 (09:01→11:46)
--- NOTE | 2020-09-05 09:07 | P.CARDCATH ---
Date of Procedure: 09/05/20 Preoperative Diagnosis: Non-STEMI Postoperative Diagnosis: Multivessel disease with critical lesion involving the intermediate branch and moderate the severe disease involving the proximal to mid RCA Description of Procedure: HISTORY: This is a 89-year-old female with no significan past medical history was admitted to the hospital with symptoms and cardiac enzymes size to of non- STEMI. Patient is advised to have a cardiac catheterization for definitive diagnosis. Patient family were explained the risks and benefits of the procedure CONSENT:I have discussed the risks, benefits and alternative therapies for the above-mentioned procedure and for both sedation/analgesia as well as necessary blood product administration, if indicated, as they pertain to this patient. The patient has indicated understanding and acceptance of the risks and procedu res discussed. PROCEDURE: Patient was brought to the lab in a fasting state. Patient was given some IV sedation. The right wrist is infiltrated with lidocaine and right radial artery was entered using Seldinger technique. A 6-Korean catheter was left in place and selective coronary arteriography and left ventriculography was performed. Patient tolerated the procedure well. Patient is found to have a critical lesion in the intermediate branch and moderate to severe disease in RCA. No immediate complications were noted and patient is waiting to have intervention by JOHNNY Price. The sheath is sutured to the floor and patient is sent to PACU in a stable condition Conscious Sedation: Versed 0.5mg Fentanyl 12.5 g Duration 23 minutes HEMODYNAMICS:. The aortic pressure is about 130/70. Left ankle end-diastolic pressure is about 9-12. There was no gradient across the aortic valve SELECTIVE CORONARY ARTERIOGRAPHY: LEFT MAIN: Normal length and free of occlusive disease THE LEFT ANTERIOR DESCENDING CORONARY ARTERY:. This is a good caliber vessel wrapping around Free of any significant occlusive THE LEFT CIRCUMFLEX AND IS CORONARY ARTERY: Set good caliber vessel giving rise to small first OM branch or intermediate branch which is subtotal occlusion in midportion THE RIGHT CORONARY ARTERY:. This is a good caliber vessel and codominant has diffuse plaque in the midportion an area of about 70% lesion. LEFT VENTRICULOGRAPHY: Performed FINAL IMPRESSION: 2 vessel disease with a subtotal occlusion of the OM branch/intermediate branch. Moderate to critical lesion involving the RCA PLAN: And placement of the OM branch and also possibly RCA. To be done by JOHNNY Price PROGNOSIS: Guarded
[2020-09-05] MEDS ORDERED: SODIUM CHLORIDE 0.9% 1,000 ML IV SCH ×2 (09:15→12:00)
[2020-09-05] MEDS ORDERED: IV FLUID CONTINUATION 100 ML IV ONE (10:15)
[2020-09-05] MEDS ORDERED: SODIUM CHLORIDE 0.9% 1,000 ML IV ONE (10:15)
[2020-09-05] MEDS: ASPIRIN 81 MG PO SCH (11:02)
[2020-09-05] MEDS ORDERED: BIVALIRUDIN BOLUS 250 MG/50 ML IV ONE (11:03)
[2020-09-05] MEDS ORDERED: BIVALIRUDIN 250 MG in SODIUM CHLORIDE 0.9% 50 ML IV ONE (11:04)
[2020-09-05] MEDS ORDERED: METOPROLOL TARTRATE 5 MG/5 ML VIAL IVP ONE ×2 (11:08→11:10)
[2020-09-05] MEDS ORDERED: NITROGLYCERIN 1000MCG/10ML SYRINGE INTRACORON ONE (11:29)
[2020-09-05] MEDS ORDERED: CLOPIDOGREL 75 MG TAB ONE ×2 (11:32→11:33)
[2020-09-05] MEDS ORDERED: IOPAMIDOL-370 50ML BTL INJ ONE (11:34)
[2020-09-05] MEDS ORDERED: CLOPIDOGREL 75 MG TAB PO ONE (11:34)
[2020-09-05] MEDS ORDERED: METOPROLOL TARTRATE 25 MG TAB PO SCH (11:45)
[2020-09-05] MEDS ORDERED: ATROPINE SULFATE 0.1 MG/ML 10ML SYRINGE IV PRN (11:46)
[2020-09-05] MEDS ORDERED: NITROGLYCERIN SL TABS 0.4 MG TAB SUBLINGUAL PRN (11:46)
[2020-09-05] MEDS ORDERED: MAG HYDROX/AL HYDROX/SIMETH 30 ML CUP PO PRN (11:46)
[2020-09-05] MEDS ORDERED: ZOLPIDEM 5 MG TAB PO PRN (11:46)
[2020-09-05] MEDS: CLOPIDOGREL 75 MG TAB PO SCH (12:04)
[2020-09-05] MEDS: PANTOPRAZOLE 40 MG TABLET PO SCH ×2 (12:07→17:05)
[2020-09-05] MEDS: ISOSORBIDE MONONITRATE ER 30 MG TAB.ER.24H PO SCH (12:07)
--- NOTE | 2020-09-05 14:23 | P.DS ---
Providers Date of admission: 09/02/20 11:20 Expected date of discharge: 09/05/20 Attending physician: Lizzie Donaldson DO Consults: 09/01/20 17:08 Consult Physician Urgent Consulting Provider: Jian Hubbard Consult Reason/Comments: Chest pain Do you want consulting provider notified?: Yes 09/05/20 11:48 Consult Physician Routine Consulting Provider: [facility] Consult Reason/Comments: Post Interventional patient Do you want consulting provider notified?: Already Contacted Primary care physician: Andrez Gibbons MD Hospital Course: HPI: Patient is a 89-year-old female with a history of prior colon cancer who presented to the ER with complaint of chest pain. She received aspirin and nitro prior to arrival in the ED with adequate pain relief. Inital EKG demonstarted NSR with PAC, SUper axis deviation, and no st-t wave changes. CXR showed no acute process. Initial troponin was negative. D_dimer when adjusted for age was normal. Patient seen and examined at bedside. She reports that last week she has been having some pretty significant heartburn, nausea, and constipation for the last 3 days after taking Pepto-Bismol. Today [place] she started experiencing retrosternal chest pain without radiation that was severe in nature. It was associated with difficulty in breathing, feeling just off and nauseated. No unusual numbness or tingling down into her arms or up into her jaw. No presyncope. She has not been sick or ill otherwise recently. She denies any changes in medications. She states she recently had an EKG done at Dr. Gibbons's office which was normal. She has no history of heart disease. No recent changes in medication. Has been taking peptobismol for he last week fro heart burn. Pertinent positives and negatives as discussed in HPI, a complete review of systems was performed and all other systems are negative. Hospital Course: NSTEMI Bradycardia with PACs Patient is admitted for chest pain rule out, and noted to have increasing troponins which peaked around 0.86. Initially, patient was recommended to have left heart cath, however, she wanted medical management. However, after further discussion with her family members and cardiology team, patient decided it was more appropriate to undergo left heart cath with possible intervention. She underwent left heart cath on 09/05 which demonstrated 2 significant lesions, one of which was stented (OM1). Cardiology team recommended staged procedure with next step on Saturday to open up the RCA. Patient did well following the procedure on 09/05, and was discharged home with instructions to follow-up on Saturday for second PCI. Patient was started on aspirin, statin, Imdur, Plavix. She was noted to have bradycardic episodes on telemetry while she was in-house, therefore she was not started on metoprolol. I spent 31 coordinating this discharge. Assessment: Gen: awake, alert HEENT: normocephalic, atraumatic, good hearing acuity, moist mucous membranes Resp: good air exchange, breathing comfortably with no accessory muscle use, clear to auscultation bilaterally without wheezes or crackles CVS: good distal perfusion x 4, bradycardic, regular rate, systolic ejection murmur GI: soft, NTTP, ND, appropriate bowel sounds : no SPT, no CVAT, mello catheter not present MSK: no pitting edema, no clubbing Neuro: non-focal, moving all extremities Psych: cooperative, euthymic mood Patient Condition at Discharge: Good Plan - Discharge Summary Discharge Rx Participant: No New Discharge Prescriptions: New Aspirin 81 mg PO DAILY chew Atorvastatin [Lipitor] 80 mg PO HS 30 Days #30 tab Clopidogrel [Plavix] 75 mg PO DAILY 30 Days #30 tab Nitroglycerin Sl Tabs [Nitrostat] 0.4 mg SUBLINGUAL Q5M PRN #30 tab PRN Reason: Chest Pain Metoprolol Tartrate [Lopressor] 25 mg PO BID 30 Days #30 tab Acetaminophen Tab [Tylenol] 650 mg PO Q6HR PRN tab PRN Reason: Mild Pain Or Fever > 100.5 Continue Cholecalciferol [Vitamin D3 (25 Mcg = 1000 Iu)] 50 mcg PO DAILY Latanoprost/Pf [Latanoprost 0.005% Eye Drop] 1 drop BOTH EYES HS Cranberry Fruit Extract [Cranberry] 500 mg PO DAILY Vitamin E 400 unit PO DAILY Discharge Medication List Cholecalciferol [Vitamin D3 (25 Mcg = 1000 Iu)] 50 mcg PO DAILY 09/01/20 [History] Cranberry Fruit Extract [Cranberry] 500 mg PO DAILY 09/01/20 [History] Latanoprost/Pf [Latanoprost 0.005% Eye Drop] 1 drop BOTH EYES HS 09/01/20 [History] Vitamin E 400 unit PO DAILY 09/01/20 [History] Acetaminophen Tab [Tylenol] 650 mg PO Q6HR PRN tab 09/05/20 [Rx] Aspirin 81 mg PO DAILY chew 09/05/20 [Rx] Atorvastatin [Lipitor] 80 mg PO HS 30 Days #30 tab 09/05/20 [Rx] Clopidogrel [Plavix] 75 mg PO DAILY 30 Days #30 tab 09/05/20 [Rx] Metoprolol Tartrate [Lopressor] 25 mg PO BID 30 Days #30 tab 09/05/20 [Rx] Nitroglycerin Sl Tabs [Nitrostat] 0.4 mg SUBLINGUAL Q5M PRN #30 tab 09/05/20 [Rx] Follow up Appointment(s)/Referral(s): Andrez Gibbons MD [Primary Care Provider] - 1-2 days Fide Morales MD [STAFF PHYSICIAN] - 09/15/20 4:15 pm Activity/Diet/Wound Care/Special Instructions: [facility] scheduling department will call you on with further instructions for your procedure. (Expected procedure time on Saturday is 0630am so you will have to use the ER entrance) Discharge Disposition: HOME SELF-CARE
[2020-09-05 14:31] VITALS: TEMP 98
[2020-09-05 16:09] VITALS: BP 101/57; PULSE 53
[2020-09-05] MEDS: ACETAMINOPHEN TAB 325 MG TAB PO PRN (17:05)
--- NOTE | 2020-09-05 21:57 | PTCA ---
PERCUTANEOUSTRANS CORORONARY ANGIOGRAPHY DATE OF SERVICE: 09/05/2020 PROCEDURE PERFORMED: Percutaneous transluminal coronary angioplasty and stenting of proximal circumflex marginal coronary artery with a drug-eluting stent. PERFORMED BY: Dr. Antonio Price. Moderate conscious sedation time was 42 minutes. The patient was administered Versed. Oxygen saturation, hemodynamics and EKG were monitored closely. CLINICAL INFORMATION: Mrs. Radha Thompson is a lady with a history of hypertension who came into the hospital with episode of chest pain, had a troponin elevation suggestive of [id number] SC. She was advised coronary angiography after evaluation by Dr. Morales. Cardiac catheterization performed by Dr. Morales revealed a 99% proximal circumflex marginal lesion, which I believe is the culprit lesion. There was also a dominant RCA with a long area of disease of nearly 75%. Patient received contrast already and had about 140 mL of available contrast before reaching the threshold, given her age and creatinine. I therefore explained to the patient that I would perform intervention of the circumflex marginal, which appears to be the culprit vessel, which had 99% stenosis, and then I would bring her back for a PCI of RCA in the next few days. She understood the details and wished to proceed. PROCEDURE NOTE: The existing 6-Togolese introducer in the right radial artery was used to perform the procedure. Using a Glidewire, I advanced a JL4 guide catheter of 6-Togolese caliber and cannulated the left coronary artery. A run-through wire with a curve was used to cross the subtotal occlusion of the first obtuse marginal branch. Wire was kept distally. Predilatation was performed with a 2.25 caliber 12 mm NC Trek balloon. Modest result was achieved. I had difficulty with the guide support. After some manipulation, I advanced a 2.0 caliber 12 mm NC Trek balloon, and with this I gave a longer inflation of 12 atmospheres. There was a modest improvement. I then deployed a 12 mm long 2.25 caliber Xience stent at about 11 atmospheres. Patient had mild chest discomfort, no significant EKG changes. Excellent angiographic result without complication was achieved. There was a substantial improvement in the angiographic appearance and the artery appeared to be larger in caliber and also had a fairly large distribution. The patient received Angiomax bolus and infusion as per protocol. She also received 450 mg of Plavix as a loading dose. She had already received 75 mg earlier. The sheath was then taken out and TR band applied as per protocol, with saturation of the fingers of the right hand of 94%. The details of the procedure were discussed with the patient's son and daughter. I explained to them that she can be discharged later on today if she remains stable, and I will bring her back on Saturday to do the staged intervention of RCA, which was a larger vessel. Patient and family understand the rationale, risks, benefits and options of the larger dominant RCA that will be performed this Saturday. Patient will be discharged later on today if she remains stable, and renal function will be checked prior to the PCI procedure. She was sent to the room in a stable condition. MMODL / IJN: [id number] /
== END 2020-09-05 18:25 | disposition home or self-care (01) | DRG 247 ==
LOC: EC 14:48 → 6NMEDSUR 17:08 → UNDOADMOB 17:08 → 6NMEDSUR 18:35 → OBSVTOIN 09-02 11:20 → INTOOBSV 09-02 11:20
PROVIDERS: ADMIT Internal Medicine; ATTEND Internal Medicine
PROC: B2151ZZ Fluoroscopy of Left Heart using Low Osmolar Contrast (ICD-10-PCS; 2020-09-05)
PROC: B2111ZZ Fluoroscopy of Multiple Coronary Arteries using Low Osmolar Contrast (ICD-10-PCS; 2020-09-05)
PROC: 4A023N7 Measurement of Cardiac Sampling and Pressure, Left Heart, Percutaneous Approach (ICD-10-PCS; 2020-09-05)
PROC: 027034Z Dilation of Coronary Artery, One Artery with Drug-eluting Intraluminal Device, Percutaneous Approach (ICD-10-PCS; principal; 2020-09-05 11:20)
DX: I21.4 Non-ST elevation (NSTEMI) myocardial infarction (principal); I45.10 Unspecified right bundle-branch block; K21.9 Gastro-esophageal reflux disease without esophagitis; K44.9 Diaphragmatic hernia without obstruction or gangrene; K59.00 Constipation, unspecified; Z20.822 Contact with and (suspected) exposure to COVID-19; H40.9 Unspecified glaucoma; I10 Essential (primary) hypertension; Z79.82 Long term (current) use of aspirin; Z79.899 Other long term (current) drug therapy; Z85.038 Personal history of other malignant neoplasm of large intestine; Z90.710 Acquired absence of both cervix and uterus; I49.1 Atrial premature depolarization; Z60.2 Problems related to living alone; Z90.49 Acquired absence of other specified parts of digestive tract; Z88.2 Allergy status to sulfonamides; E89.2 Postprocedural hypoparathyroidism
CPT/HCPCS: 36415; 71046; 80048; 80053; 80061; 82550; 83690; 83735; 83880; 84484; 85025; 85379; 85610; 85730; 87635; 93005; 93306; 93458; 99291

== ENCOUNTER 2020-09-09 06:16 | Day surgery (SDC) | payer MEDICARE ==
[2020-09-07 11:48] VITALS: BMI 18.8
[~2020-09-09 06:16] MED LIST: ALPRAZolam 0.25 MG TAB PO PRN; ALPRAZolam 0.5 MG TAB PO PRN; ASPIRIN 325 MG TAB PO STA; ATORVASTATIN 80 MG TAB PO STA; NITROGLYCERIN SL TABS 0.4 MG TAB SUBLINGUAL PRN; SODIUM CHLORIDE 0.9% 1,000 ML in EMPTY BAG 1 BAG IV ONE
[2020-09-09] MEDS ORDERED: SODIUM CHLORIDE 0.9% 1,000 ML IV ONE (06:48)
[2020-09-09 07:08] VITALS: RESP 16; TEMP 98
[2020-09-09] MEDS ORDERED: LIDOCAINE 1% INJ 10MG/ML (20 ML MDV) ONE (07:31)
[2020-09-09] MEDS ORDERED: MIDAZOLAM 2 MG/2 ML VIAL IV ONE (07:53)
[2020-09-09] MEDS ORDERED: LIDOCAINE 1% INJ 10MG/ML (20 ML MDV) SQ ONE (07:54)
[2020-09-09] MEDS ORDERED: HEPARIN SODIUM 1,000 UN/ML (10ML VL) ONE (07:54)
[2020-09-09] MEDS: HEPARIN SODIUM 1,000 UN/ML (10ML VL) IV ONE ×2 (07:57→08:10)
[2020-09-09] MEDS ORDERED: NITROGLYCERIN 1000MCG/10ML SYRINGE INTRACORON ONE (08:17)
[2020-09-09] MEDS ORDERED: CLOPIDOGREL 75 MG TAB ONE (08:30)
[2020-09-09] MEDS ORDERED: IOPAMIDOL-370 100ML BTL INJ ONE ×2 (08:31→08:35)
[2020-09-09] MEDS ORDERED: CLOPIDOGREL 75 MG TAB PO ONE (08:35)
[2020-09-09] MEDS ORDERED: SODIUM CHLORIDE 0.9% 1,000 ML IV SCH (08:47)
--- NOTE | 2020-09-09 10:31 | PTCA ---
PERCUTANEOUSTRANS CORORONARY ANGIOGRAPHY DATE OF SERVICE: 09/09/2020 PROCEDURE: PTCA and stenting of proximal and mid RCA with 2 drug-eluting stents. PERFORMED BY: Dr. Antonio Price. ANESTHESIA: Moderate conscious sedation time was 41 minute. Patient was administered Versed. Oxygenation, hemodynamics and EKG were monitored closely. CLINICAL INFORMATION: Mrs. Radha Thompson is an 89-year-old lady wh9 was seen and evaluated by Dr. Morales and underwent cardiac cath performed by him on the and I did a stenting of a high first obtuse marginal which was a 99% culprit lesion. She also had a long lesion in the mid LAD/proximal LAD of about 70-80% and this was quite a calcified vessel. She was advised intervention and brought in for the procedure today. Risks, benefits, options were explained. PROCEDURE NOTE: Under local anesthesia and strict aseptic precautions, a 6-Arabic introducer was placed in the right femoral artery. Previously cannulating the right coronary artery from the radial approach was quite difficult. Subselective injections were performed. I used initially a standard right Osmani and switched over to an ART 3.5 catheter. With this I had better guide support. A run-through wire was used to cross the lesion. Predilatation was performed with a 20 mm long 3.0 caliber NC Trek balloon. I then deployed a 23 mm long Xience stent of 3.5 caliber at 12 atmospheres. I noted that distal to the stent there was still area of narrowing and this was addressed with a 12 mm long 3.5 caliber stent that was telescoped distally. Excellent angiographic result was achieved without complication. Patient had chest pain and inferior ST elevations. The patient received intravenous heparin and ACT was about 281. She was already on aspirin and Plavix. She received additional 150 mg of Plavix. The sheath was taken out and Angio-Seal device used to secure hemostasis. She was sent to the room in a stable condition. Results were discussed with the patient's son and daughter. I expect she will be discharged later today and will see Dr. Morales in one week. Excellent angiographic result was achieved. Medications, activity, diet were reviewed. Patient will be discharged today. MMODL / IJN: [id number] /
[2020-09-09 17:35] VITALS: BP 126/56; PULSE 59
== END 2020-09-09 17:32 | disposition home or self-care (01) ==
LOC: CATHCVL 06:16
PROVIDERS: ATTEND Internal Medicine Interventional Cardiology
DX: I25.10 Atherosclerotic heart disease of native coronary artery without angina pectoris (principal); Z20.822 Contact with and (suspected) exposure to COVID-19; K21.9 Gastro-esophageal reflux disease without esophagitis; K44.9 Diaphragmatic hernia without obstruction or gangrene; I25.2 Old myocardial infarction; H40.9 Unspecified glaucoma; Z85.038 Personal history of other malignant neoplasm of large intestine; E89.2 Postprocedural hypoparathyroidism; Y83.8 Other surgical procedures as the cause of abnormal reaction of the patient, or of later complication, without mention of misadventure at the time of the procedure; Z88.2 Allergy status to sulfonamides; Z82.49 Family history of ischemic heart disease and other diseases of the circulatory system
CPT/HCPCS: 87635; C9600; C1769 ×4; C1760; C1887 ×2; C1725; C1894; C1874; J2250; J2001; J1644; Q9967